=== PATIENT | female | born 1935 | race Two or more races ===

== ENCOUNTER 2017-09-22 07:27 | Inpatient (IN) | payer MEDICARE, OTHER ==
[~2017-09-22] VITALS: Ht 157.5 cm; Wt 77.0 kg
[2017-09-22] VITALS (8 sets, daily range): BP systolic 109–159; BP diastolic 53–109
[~2017-09-22 07:27] MED LIST: ASPI-41 PO; CYCL-394 PO; DILT120C62 PO; DOCU100C40 PO; DULO-31 PO; HYDR-569 PO; INSU100I25 SQ; LEVO750T46 PO
[2017-09-22] MEDS ORDERED: diltiazem 5mg/ml 5ml inj. IV ONE ×2 (07:40→08:15)
[2017-09-22] MEDS ORDERED: aspirin 81mg tab.chew PO ONE (07:40)
[2017-09-22 08:04] LABS: BASOPHILS % (AUTO) 0.3 % (0-1); EOSINOPHILS # (AUTO) 0.3 X10'3 (0-0.9); EOSINOPHILS % (AUTO) 2.5 % (0-6); HEMOGLOBIN 10.1 g/dl (12.0-16.0); LYMPHOCYTES # (AUTO) 0.9 X10'3 (1.1-4.8); LYMPHOCYTES % (AUTO) 7.6 % (21-51); MEAN CORPUSCULAR HEMOGLOBIN 23.2 PG (27.0-31.0); MEAN CORPUSCULAR HGB CONC 31.5 % (33.0-36.5); MEAN CORPUSCULAR VOLUME 73.5 FL (78-98); MEAN PLATELET VOLUME 10.6 FL (7.4-10.4); MONOCYTES # (AUTO) 0.5 X10'3 (0-0.9); MONOCYTES % (AUTO) 4.2 % (2-12); NEUTROPHILS # (AUTO) 10.3 X10'3 (1.8-7.7); NEUTROPHILS % (AUTO) 85.4 % (42-75); PLATELET COUNT 210 X10'3 (140-440); RED BLOOD COUNT 4.36 X10'6 (4.20-5.60); RED CELL DISTRIBUTION WIDTH 18.9 % (11.5-14.5)
[2017-09-22] MEDS ORDERED: diltiazem-NS 100mg/100ml 100 ML IV SCH (08:15)
[2017-09-22 08:17] LABS: ALANINE AMINOTRANSFERASE 17 U/L (12-78); ALBUMIN 3.4 G/DL (3.4-5.0); ALBUMIN/GLOBULIN RATIO 0.8 (1.1-1.5); ALKALINE PHOSPHATASE 95 IU/L (46-116); ANION GAP 7 (8-16); ASPARTATE AMINO TRANSFERASE 13 U/L (10-37); BILIRUBIN,TOTAL 1.1 MG/DL (0.1-1.0); BLOOD UREA NITROGEN 28 MG/DL (7-18); BUN/CREATININE RATIO 19.7 (6.6-38.0); CALCIUM 8.8 MG/DL (8.5-10.1); CHLORIDE 100 MMOL/L (99-107); CREATININE 1.42 MG/DL (0.40-0.90); GLUCOSE 232 MG/DL (70-104); SODIUM 136 MMOL/L (135-145); TOTAL CARBON DIOXIDE 29.4 MMOL/L (24-32); TOTAL PROTEIN 7.8 G/DL (6.4-8.2); eGFR 36 ML/MIN
[2017-09-22 08:22] LABS: MAGNESIUM 2.1 MG/DL (1.5-2.4)
[2017-09-22 08:24] LABS: ANISOCYTOSIS 2+; GIANT PLATELET FEW; LARGE PLATELETS FEW; PLATELET ESTIMATE NORMAL; POLYCHROMASIA 1+
[2017-09-22 08:28] LABS: PARTIAL THROMBOPLASTIN TIME 26 SECONDS (22-32); PROTHROMBIN TIME 10.7 SECONDS (9.0-12.0)
[2017-09-22] MEDS ORDERED: normal saline 1000ML IV soln IVB ONE (09:05)
[2017-09-22] MEDS ORDERED: heparin 10,000 units/1 ML INJ IV ONE (09:10)
[2017-09-22] MEDS ORDERED: dextrose ORAL solution 15 GM/59 ML bottle PO PRN ×2 (09:30)
[2017-09-22] MEDS ORDERED: morphine 4 MG/ML inj SYRINge IV PRN ×2 (09:30)
[2017-09-22] MEDS ORDERED: HYDROcodone/acetaminophen 10/325mg tab PO PRN (09:30)
[2017-09-22] MEDS ORDERED: HYDROcodone/acetaminophen 5mg/325mg tablet PO PRN (09:30)
[2017-09-22] MEDS ORDERED: MESSAGE TO PHARMACY PO ONE (09:30)
[2017-09-22] MEDS ORDERED: ondansetron/PF 4mg/2ml inj IV PRN (09:30)
[2017-09-22] MEDS ORDERED: dextrose 50%-water 50ml dispensing syringe IV PRN ×2 (09:30)
[2017-09-22] MEDS ORDERED: glucagon, human recombinant 1mg kit SUBCUT PRN (09:30)
[2017-09-22] MEDS ORDERED: magnesium hydroxide 30ml (MOM) UD suspension PO PRN (09:30)
[2017-09-22] MEDS ORDERED: mag hydrox/Alum hydrox/simeth 30ml oral suspension PO PRN (09:30)
[2017-09-22] MEDS ORDERED: acetaminophen 325mg tablet PO PRN (09:30)
[2017-09-22 09:49] LABS: HEMOGLOBIN A1C 8.3 % (4.5-6.2)
[2017-09-22] MEDS ORDERED: LANTUS SQ (09:56)
[2017-09-22] MEDS ORDERED: FURO-150 PO (09:56)
[2017-09-22] MEDS ORDERED: CARSR60C PO (09:57)
[2017-09-22] MEDS ORDERED: AMIO200T57 PO (09:57)
[2017-09-22] MEDS: diltiazem CD 120mg capsule (once-daily) PO SCH (13:14)
[2017-09-22] MEDS: insulin Lispro (HumaLOG) vial - multi-dose SQ SCH (17:04)
[2017-09-22] MEDS: heparin 10,000 units/1 ML INJ IV PRN (17:09)
[2017-09-22] MEDS ORDERED: diltiazem CD 120mg capsule (once-daily) PO ONE (17:55)
[2017-09-22] MEDS: docusate sod 100mg capsule PO SCH (19:10)
[2017-09-22] MEDS: insulin glargine (Lantus) pen - multi-dose SQ SCH (21:24)
[2017-09-23] MEDS: heparin 10,000 units/1 ML INJ IV PRN (00:32)
[2017-09-23 02:00] VITALS: BP 133/69
[2017-09-23 06:00] VITALS: BP 144/75
[2017-09-23] MEDS ORDERED: enoxaparin 40mg/0.4ml syringe SUBCUT SCH ×2 (08:00→10:25)
[2017-09-23 08:05] LABS: BASOPHILS % (AUTO) 0.4 % (0-1); EOSINOPHILS # (AUTO) 0.2 X10'3 (0-0.9); EOSINOPHILS % (AUTO) 2.6 % (0-6); HEMATOCRIT 29.7 % (35.0-45.0); HEMOGLOBIN 9.4 g/dl (12.0-16.0); LYMPHOCYTES # (AUTO) 0.8 X10'3 (1.1-4.8); LYMPHOCYTES % (AUTO) 9.4 % (21-51); MEAN CORPUSCULAR HEMOGLOBIN 23.3 PG (27.0-31.0); MEAN CORPUSCULAR HGB CONC 31.5 % (33.0-36.5); MEAN CORPUSCULAR VOLUME 73.9 FL (78-98); MEAN PLATELET VOLUME 10.6 FL (7.4-10.4); MONOCYTES # (AUTO) 0.4 X10'3 (0-0.9); MONOCYTES % (AUTO) 4.2 % (2-12); NEUTROPHILS # (AUTO) 7.5 X10'3 (1.8-7.7); NEUTROPHILS % (AUTO) 83.4 % (42-75); PLATELET COUNT 149 X10'3 (140-440); RED BLOOD COUNT 4.02 X10'6 (4.20-5.60); RED CELL DISTRIBUTION WIDTH 18.7 % (11.5-14.5)
[2017-09-23 08:23] LABS: ALBUMIN 3.2 G/DL (3.4-5.0); ANION GAP 9 (8-16); BLOOD UREA NITROGEN 27 MG/DL (7-18); BUN/CREATININE RATIO 20.6 (6.6-38.0); CALCIUM 8.5 MG/DL (8.5-10.1); CHLORIDE 100 MMOL/L (99-107); CHOLESTEROL 141 MG/DL (0-200); CREATININE 1.31 MG/DL (0.40-0.90); GLUCOSE 212 MG/DL (70-104); HDL CHOLESTEROL 35 MG/DL (35-60); LDL CHOLESTEROL 96 MG/DL (50-100); SODIUM 136 MMOL/L (135-145); TOTAL CARBON DIOXIDE 26.9 MMOL/L (24-32); TRIGLYCERIDES 102 MG/DL (20-135); eGFR 39 ML/MIN
[2017-09-23 08:45] LABS: TROPONIN I 0.11 NG/ML (0.0-0.05)
[2017-09-23] MEDS: docusate sod 100mg capsule PO SCH ×2 (08:46→19:12)
[2017-09-23] MEDS: diltiazem CD 120mg capsule (once-daily) PO SCH (08:47)
[2017-09-23 09:33] LABS: ANISOCYTOSIS 2+; PLATELET ESTIMATE NORMAL
[2017-09-23 09:34] LABS: GIANT PLATELET FEW; LARGE PLATELETS FEW; POLYCHROMASIA FEW
[2017-09-23] MEDS: insulin Lispro (HumaLOG) vial - multi-dose SQ SCH ×3 (09:43→19:11)
[2017-09-23 11:00] VITALS: BP 129/61
[2017-09-23] MEDS: furosemide 20 MG/2 ML vial IV SCH ×2 (11:16→19:13)
[2017-09-23] MEDS ORDERED: diltiazem CD 120mg capsule (once-daily) PO ONE (12:20)
[2017-09-23] MEDS ORDERED: diltiazem 5mg/ml 5ml inj. IV ONE (12:20)
[2017-09-23] MEDS: rivaroxaban 15mg tablet PO SCH (13:44)
[2017-09-23 15:00] VITALS: BP 141/59
[2017-09-23 19:00] VITALS: BP 121/50
[2017-09-23] MEDS: insulin glargine (Lantus) pen - multi-dose SQ SCH ×2 (20:00→21:27)
[2017-09-23 22:00] VITALS: BP 120/68
[2017-09-24 02:00] VITALS: BP 130/55
[2017-09-24 05:45] LABS: BASOPHILS % (AUTO) 0 % (0-1); EOSINOPHILS # (AUTO) 0.3 X10'3 (0-0.9); EOSINOPHILS % (AUTO) 2.8 % (0-6); HEMATOCRIT 31.2 % (35.0-45.0); HEMOGLOBIN 9.8 g/dl (12.0-16.0); LYMPHOCYTES # (AUTO) 0.8 X10'3 (1.1-4.8); LYMPHOCYTES % (AUTO) 7.9 % (21-51); MEAN CORPUSCULAR HEMOGLOBIN 23.3 PG (27.0-31.0); MEAN CORPUSCULAR HGB CONC 31.5 % (33.0-36.5); MEAN CORPUSCULAR VOLUME 73.9 FL (78-98); MEAN PLATELET VOLUME 10.1 FL (7.4-10.4); MONOCYTES # (AUTO) 0.5 X10'3 (0-0.9); NEUTROPHILS # (AUTO) 8.3 X10'3 (1.8-7.7); NEUTROPHILS % (AUTO) 84.3 % (42-75); PLATELET COUNT 196 X10'3 (140-440); RED BLOOD COUNT 4.22 X10'6 (4.20-5.60); RED CELL DISTRIBUTION WIDTH 19.3 % (11.5-14.5); WHITE BLOOD COUNT 9.9 X10'3 (4.5-11.0)
[2017-09-24 06:00] VITALS: BP 140/78
[2017-09-24 06:10] LABS: ALBUMIN 3.3 G/DL (3.4-5.0); ANION GAP 7 (8-16); BLOOD UREA NITROGEN 24 MG/DL (7-18); BUN/CREATININE RATIO 18.9 (6.6-38.0); CALCIUM 8.6 MG/DL (8.5-10.1); CHLORIDE 99 MMOL/L (99-107); CREATININE 1.27 MG/DL (0.40-0.90); GLUCOSE 150 MG/DL (70-104); POTASSIUM 3.6 MMOL/L (3.5-5.1); SODIUM 136 MMOL/L (135-145); TOTAL CARBON DIOXIDE 29.7 MMOL/L (24-32); eGFR 40 ML/MIN
[2017-09-24 07:10] LABS: ANISOCYTOSIS 2+; GIANT PLATELET FEW; LARGE PLATELETS FEW; PLATELET ESTIMATE NORMAL
[2017-09-24 07:11] LABS: MICROCYTOSIS 2+; POIKILOCYTOSIS FEW; POLYCHROMASIA 1+
[2017-09-24] MEDS ORDERED: duloxetine 30mg CAPSULE.DR PO SCH (08:00)
[2017-09-24] MEDS ORDERED: furosemide 20MG tablet PO SCH (08:00)
[2017-09-24] MEDS: furosemide 20 MG/2 ML vial IV SCH (08:00)
[2017-09-24] MEDS ORDERED: diltiazem SR 60mg capsule (twice daily) PO SCH (08:00)
[2017-09-24] MEDS ORDERED: amiodarone 200mg tablet PO SCH (08:00)
[2017-09-24] MEDS: docusate sod 100mg capsule PO SCH (08:14)
[2017-09-24] MEDS: rivaroxaban 15mg tablet PO SCH (08:15)
[2017-09-24] MEDS: insulin glargine (Lantus) pen - multi-dose SQ SCH (08:20)
[2017-09-24] MEDS ORDERED: FURO20TA4 PO (08:25)
[2017-09-24] MEDS: insulin Lispro (HumaLOG) vial - multi-dose SQ SCH (08:25)
== END 2017-09-24 11:00 | disposition home health service (06) | DRG 682 ==
LOC: ER 07:28 → ED HOLD 09:26 → PCU 3S 10:15 → CMPBEDREQ 19:31
PROVIDERS: ADMIT Internal Medicine; ATTEND Internal Medicine
DX: N17.9 Acute kidney failure, unspecified (principal); I50.23 Acute on chronic systolic (congestive) heart failure; J96.01 Acute respiratory failure with hypoxia; I48.0 Paroxysmal atrial fibrillation; I27.81 Cor pulmonale (chronic); F32.9 Major depressive disorder, single episode, unspecified; E11.22 Type 2 diabetes mellitus with diabetic chronic kidney disease; D50.9 Iron deficiency anemia, unspecified; N18.3 Chronic kidney disease, stage 3 (moderate); Z95.0 Presence of cardiac pacemaker; Z90.710 Acquired absence of both cervix and uterus; Z90.49 Acquired absence of other specified parts of digestive tract; Z88.5 Allergy status to narcotic agent; Z79.82 Long term (current) use of aspirin; Z79.899 Other long term (current) drug therapy; Z79.2 Long term (current) use of antibiotics; Z87.891 Personal history of nicotine dependence; Z86.73 Personal history of transient ischemic attack (TIA), and cerebral infarction without residual deficits; Z85.42 Personal history of malignant neoplasm of other parts of uterus; Z83.3 Family history of diabetes mellitus; Z82.49 Family history of ischemic heart disease and other diseases of the circulatory system
CPT/HCPCS: 36415; 71045; 80048; 80053; 80061; 82948; 83036; 83735; 83880; 84484; 85025; 85610; 85730; 93005; 93306; J1644; J1650; J1815; J1940; J2405; J3490; J7030

== ENCOUNTER 2017-10-02 16:03 | Emergency (ER) | payer MEDICARE, OTHER ==
[~2017-10-02] VITALS: Ht 154.9 cm; Wt 80.0 kg
[~2017-10-02 16:03] MED LIST changes: +AMIO200T57 PO; -ASPI-41 PO; +CARSR60C PO; -CYCL-394 PO; -DILT120C62 PO; -DOCU100C40 PO; +FURO20TA4 PO; -HYDR-569 PO; -INSU100I25 SQ; +LANTUS SQ; -LEVO750T46 PO
[2017-10-02 16:33] LABS: BASOPHILS % (AUTO) 0.1 % (0-1); EOSINOPHILS # (AUTO) 0.1 X10'3 (0-0.9); EOSINOPHILS % (AUTO) 0.9 % (0-6); HEMATOCRIT 28.3 % (35.0-45.0); LYMPHOCYTES # (AUTO) 0.7 X10'3 (1.1-4.8); LYMPHOCYTES % (AUTO) 6.3 % (21-51); MEAN CORPUSCULAR HEMOGLOBIN 23.3 PG (27.0-31.0); MEAN CORPUSCULAR HGB CONC 31.8 % (33.0-36.5); MEAN CORPUSCULAR VOLUME 73.1 FL (78-98); MEAN PLATELET VOLUME 8.8 FL (7.4-10.4); MONOCYTES # (AUTO) 0.5 X10'3 (0-0.9); MONOCYTES % (AUTO) 4.1 % (2-12); NEUTROPHILS # (AUTO) 9.6 X10'3 (1.8-7.7); NEUTROPHILS % (AUTO) 88.6 % (42-75); PLATELET COUNT 201 X10'3 (140-440); RED BLOOD COUNT 3.88 X10'6 (4.20-5.60); RED CELL DISTRIBUTION WIDTH 19.7 % (11.5-14.5); WHITE BLOOD COUNT 10.9 X10'3 (4.5-11.0)
[2017-10-02 16:43] LABS: PARTIAL THROMBOPLASTIN TIME 26 SECONDS (22-32); PROTHROMBIN TIME 10.5 SECONDS (9.0-12.0)
[2017-10-02] MEDS ORDERED: furosemide 10 MG/1 ML 10ml inj IV ONE (16:45)
[2017-10-02 16:47] LABS: ALANINE AMINOTRANSFERASE 24 U/L (12-78); ALBUMIN 3.4 G/DL (3.4-5.0); ALBUMIN/GLOBULIN RATIO 0.9 (1.1-1.5); ALKALINE PHOSPHATASE 86 IU/L (46-116); ANION GAP 8 (8-16); ASPARTATE AMINO TRANSFERASE 15 U/L (10-37); BILIRUBIN,TOTAL 0.7 MG/DL (0.1-1.0); BLOOD UREA NITROGEN 28 MG/DL (7-18); BUN/CREATININE RATIO 19.9 (6.6-38.0); CALCIUM 8.6 MG/DL (8.5-10.1); CHLORIDE 101 MMOL/L (99-107); CREATININE 1.41 MG/DL (0.40-0.90); GLUCOSE 256 MG/DL (70-104); SODIUM 139 MMOL/L (135-145); TOTAL CARBON DIOXIDE 30.4 MMOL/L (24-32); TOTAL PROTEIN 7.2 G/DL (6.4-8.2); eGFR 36 ML/MIN
[2017-10-02 16:55] LABS: ANISOCYTOSIS 2+; HYPOCHROMASIA 1+; MICROCYTOSIS 2+; PLATELET ESTIMATE NORMAL; POLYCHROMASIA 1+
[2017-10-02] MEDS ORDERED: FURO40TA4 PO (18:26)
[2017-10-02 18:56] VITALS: BP 130/72
== END 2017-10-02 19:09 | disposition home or self-care (01) ==
LOC: ER 16:04
DX: I50.9 Heart failure, unspecified (principal); I48.91 Unspecified atrial fibrillation; E11.9 Type 2 diabetes mellitus without complications; Z95.0 Presence of cardiac pacemaker; Z98.890 Other specified postprocedural states; Z88.5 Allergy status to narcotic agent; Z79.899 Other long term (current) drug therapy; Z79.4 Long term (current) use of insulin
CPT/HCPCS: 36415; 71045; 80053; 83880; 84484; 85025; 85610; 85730; 93005; 96374; 99285; J1940; J7030

== ENCOUNTER 2017-10-04 19:27 | Inpatient (IN) | payer MEDICARE, OTHER ==
[~2017-10-04] VITALS: Ht 160 cm; Wt 79.9 kg
[~2017-10-04 19:27] MED LIST changes: +AMIO200T40 PO; -AMIO200T57 PO; +FURO40TA4 PO
[2017-10-04 20:06] LABS: BASOPHILS % (AUTO) 0.1 % (0-1); EOSINOPHILS # (AUTO) 0.1 X10'3 (0-0.9); HEMATOCRIT 27.3 % (35.0-45.0); HEMOGLOBIN 8.6 g/dl (12.0-16.0); LYMPHOCYTES # (AUTO) 0.6 X10'3 (1.1-4.8); LYMPHOCYTES % (AUTO) 5.8 % (21-51); MEAN CORPUSCULAR HEMOGLOBIN 23.2 PG (27.0-31.0); MEAN CORPUSCULAR HGB CONC 31.6 % (33.0-36.5); MEAN CORPUSCULAR VOLUME 73.4 FL (78-98); MEAN PLATELET VOLUME 8.8 FL (7.4-10.4); MONOCYTES # (AUTO) 0.5 X10'3 (0-0.9); MONOCYTES % (AUTO) 4.2 % (2-12); NEUTROPHILS # (AUTO) 9.9 X10'3 (1.8-7.7); NEUTROPHILS % (AUTO) 88.9 % (42-75); PLATELET COUNT 208 X10'3 (140-440); RED BLOOD COUNT 3.72 X10'6 (4.20-5.60); RED CELL DISTRIBUTION WIDTH 19.9 % (11.5-14.5); WHITE BLOOD COUNT 11.2 X10'3 (4.5-11.0)
[2017-10-04 20:25] LABS: ALANINE AMINOTRANSFERASE 23 U/L (12-78); ALBUMIN 3.6 G/DL (3.4-5.0); ALBUMIN/GLOBULIN RATIO 0.8 (1.1-1.5); ALKALINE PHOSPHATASE 96 IU/L (46-116); ANION GAP 9 (8-16); ASPARTATE AMINO TRANSFERASE 15 U/L (10-37); BILIRUBIN,TOTAL 0.8 MG/DL (0.1-1.0); BLOOD UREA NITROGEN 30 MG/DL (7-18); BUN/CREATININE RATIO 21.1 (6.6-38.0); CHLORIDE 99 MMOL/L (99-107); CREATININE 1.42 MG/DL (0.40-0.90); GLUCOSE 316 MG/DL (70-104); SODIUM 139 MMOL/L (135-145); TOTAL CARBON DIOXIDE 31.2 MMOL/L (24-32); TOTAL PROTEIN 8.3 G/DL (6.4-8.2); eGFR 36 ML/MIN
[2017-10-04 20:26] LABS: PARTIAL THROMBOPLASTIN TIME 26 SECONDS (22-32); PROTHROMBIN TIME 10.2 SECONDS (9.0-12.0)
[2017-10-04] MEDS ORDERED: albuterol 2.5 MG/3 ML nebule NEB ONE (20:35)
[2017-10-04] MEDS ORDERED: insulin glargine (Lantus) pen - multi-dose SQ ONE (20:40)
[2017-10-04] MEDS ORDERED: furosemide 10 MG/1 ML 10ml inj IV ONE (20:40)
[2017-10-04] MEDS ORDERED: MESSAGE TO PHARMACY PO ONE (21:55)
[2017-10-04] MEDS ORDERED: glucagon, human recombinant 1mg kit SUBCUT PRN (21:55)
[2017-10-04] MEDS ORDERED: mag hydrox/Alum hydrox/simeth 30ml oral suspension PO PRN (21:55)
[2017-10-04] MEDS ORDERED: ondansetron/PF 4mg/2ml inj IV PRN (21:55)
[2017-10-04] MEDS ORDERED: acetaminophen 325mg tablet PO PRN ×2 (21:55)
[2017-10-04] MEDS ORDERED: potassium Cl 20 mEq SR tablet PO PRN (21:55)
[2017-10-04] MEDS ORDERED: HYDROcodone/acetaminophen 5mg/325mg tablet PO PRN (21:55)
[2017-10-04] MEDS ORDERED: albuterol 2.5 MG/3 ML nebule NEB PRN (21:55)
[2017-10-04] MEDS ORDERED: potassium Cl 40MEQ/NS 500ml 500 ML IV PRN ×2 (21:55)
[2017-10-04] MEDS ORDERED: dextrose 50%-water 50ml dispensing syringe IV PRN ×2 (21:55)
[2017-10-04] MEDS ORDERED: dextrose ORAL solution 15 GM/59 ML bottle PO PRN ×2 (21:55)
[2017-10-04] MEDS ORDERED: DILT240C96 PO (22:17)
[2017-10-04 23:06] LABS: HEMOGLOBIN A1C 8.8 % (4.5-6.2)
[2017-10-05] VITALS: BP 110/53
[2017-10-05] MEDS: furosemide 40mg/4ml inj IV SCH ×3 (00:05→16:54)
[2017-10-05 05:01] LABS: BASOPHILS % (AUTO) 0.1 % (0-1); EOSINOPHILS # (AUTO) 0.2 X10'3 (0-0.9); EOSINOPHILS % (AUTO) 2.2 % (0-6); HEMATOCRIT 24.5 % (35.0-45.0); HEMOGLOBIN 7.7 g/dl (12.0-16.0); LYMPHOCYTES # (AUTO) 0.5 X10'3 (1.1-4.8); LYMPHOCYTES % (AUTO) 7.1 % (21-51); MEAN CORPUSCULAR HEMOGLOBIN 23.1 PG (27.0-31.0); MEAN CORPUSCULAR HGB CONC 31.4 % (33.0-36.5); MEAN CORPUSCULAR VOLUME 73.8 FL (78-98); MEAN PLATELET VOLUME 8.7 FL (7.4-10.4); MONOCYTES # (AUTO) 0.4 X10'3 (0-0.9); MONOCYTES % (AUTO) 5.6 % (2-12); NEUTROPHILS # (AUTO) 6.4 X10'3 (1.8-7.7); PLATELET COUNT 155 X10'3 (140-440); RED BLOOD COUNT 3.32 X10'6 (4.20-5.60); RED CELL DISTRIBUTION WIDTH 19.6 % (11.5-14.5); WHITE BLOOD COUNT 7.5 X10'3 (4.5-11.0)
[2017-10-05 05:11] LABS: ALBUMIN 3.3 G/DL (3.4-5.0); ANION GAP 4 (8-16); BLOOD UREA NITROGEN 31 MG/DL (7-18); BUN/CREATININE RATIO 22.1 (6.6-38.0); CALCIUM 8.9 MG/DL (8.5-10.1); CHLORIDE 102 MMOL/L (99-107); GLUCOSE 183 MG/DL (70-104); POTASSIUM 3.5 MMOL/L (3.5-5.1); SODIUM 141 MMOL/L (135-145); TOTAL CARBON DIOXIDE 34.8 MMOL/L (24-32); eGFR 36 ML/MIN
[2017-10-05 06:43] LABS: ANISOCYTOSIS 2+; MICROCYTOSIS 1+; PLATELET ESTIMATE NORMAL
[2017-10-05 06:44] LABS: POLYCHROMASIA 1+
[2017-10-05 07:14] VITALS: BP 127/66
[2017-10-05] MEDS: K and/or MAG REPLACEMENT MC SCH (08:00)
[2017-10-05] MEDS ORDERED: non-formulary drug (Diltiazem HCl (Diltiazem 24Hr Cd) 1 CAP) PO SCH (08:00)
[2017-10-05] MEDS ORDERED: apixaban 5mg tablet PO SCH (08:00)
[2017-10-05] MEDS ORDERED: diltiazem CD 120mg capsule (once-daily) PO SCH (08:00)
[2017-10-05] MEDS: insulin glargine (Lantus) pen - multi-dose SQ SCH ×2 (08:00→20:00)
[2017-10-05] MEDS: diltiazem CD 120mg capsule (once-daily) PO SCH (09:35)
[2017-10-05] MEDS: amiodarone 200mg tablet PO SCH (09:36)
[2017-10-05] MEDS: duloxetine 30mg CAPSULE.DR PO SCH (09:36)
[2017-10-05] MEDS: magnesium hydroxide 30ml (MOM) UD suspension PO PRN (09:53)
[2017-10-05 11:27] VITALS: BP 143/50
[2017-10-05] MEDS: pantoprazole 40 MG vial IV SCH ×2 (14:24→20:01)
[2017-10-05] MEDS: levoTHYROXINE 25mcg tablet PO SCH (14:27)
[2017-10-05 19:00] VITALS: BP 139/66
[2017-10-05] MEDS: insulin Lispro (HumaLOG) vial - multi-dose SQ SCH (19:47)
[2017-10-05] MEDS ORDERED: insulin glargine (Lantus) pen - multi-dose SQ SCH (21:00)
[2017-10-06] VITALS: BP 125/51
[2017-10-06] MEDS: magnesium hydroxide 30ml (MOM) UD suspension PO PRN (00:06)
[2017-10-06] MEDS: furosemide 40mg/4ml inj IV SCH ×3 (00:07→17:16)
[2017-10-06 05:32] LABS: BASOPHILS % (AUTO) 0.1 % (0-1); EOSINOPHILS # (AUTO) 0.3 X10'3 (0-0.9); EOSINOPHILS % (AUTO) 3.5 % (0-6); HEMATOCRIT 25.5 % (35.0-45.0); LYMPHOCYTES # (AUTO) 0.9 X10'3 (1.1-4.8); LYMPHOCYTES % (AUTO) 9.6 % (21-51); MEAN CORPUSCULAR HEMOGLOBIN 23.3 PG (27.0-31.0); MEAN CORPUSCULAR HGB CONC 31.3 % (33.0-36.5); MEAN CORPUSCULAR VOLUME 74.4 FL (78-98); MEAN PLATELET VOLUME 8.8 FL (7.4-10.4); MONOCYTES # (AUTO) 0.5 X10'3 (0-0.9); MONOCYTES % (AUTO) 5.2 % (2-12); NEUTROPHILS # (AUTO) 7.6 X10'3 (1.8-7.7); NEUTROPHILS % (AUTO) 81.6 % (42-75); PLATELET COUNT 186 X10'3 (140-440); RED BLOOD COUNT 3.42 X10'6 (4.20-5.60); RED CELL DISTRIBUTION WIDTH 20.1 % (11.5-14.5); WHITE BLOOD COUNT 9.3 X10'3 (4.5-11.0)
[2017-10-06 05:58] LABS: ALBUMIN 3.4 G/DL (3.4-5.0); ANION GAP 5 (8-16); BLOOD UREA NITROGEN 32 MG/DL (7-18); BUN/CREATININE RATIO 22.2 (6.6-38.0); CHLORIDE 100 MMOL/L (99-107); CREATININE 1.44 MG/DL (0.40-0.90); GLUCOSE 96 MG/DL (70-104); POTASSIUM 3.2 MMOL/L (3.5-5.1); SODIUM 141 MMOL/L (135-145); TOTAL CARBON DIOXIDE 36.3 MMOL/L (24-32); eGFR 35 ML/MIN
[2017-10-06 07:00] VITALS: BP 127/69
[2017-10-06] MEDS: amiodarone 200mg tablet PO SCH ×2 (07:56→20:10)
[2017-10-06] MEDS: levoTHYROXINE 25mcg tablet PO SCH (07:56)
[2017-10-06] MEDS: duloxetine 30mg CAPSULE.DR PO SCH (07:56)
[2017-10-06] MEDS: diltiazem CD 120mg capsule (once-daily) PO SCH (07:56)
[2017-10-06] MEDS: pantoprazole 40 MG vial IV SCH ×2 (07:57→20:10)
[2017-10-06] MEDS: potassium Cl 20 mEq SR tablet PO PRN ×3 (07:57→17:16)
[2017-10-06] MEDS: K and/or MAG REPLACEMENT MC SCH (08:00)
[2017-10-06 11:00] VITALS: BP 127/68
[2017-10-06 11:23] LABS: ANISOCYTOSIS 2+; HYPOCHROMASIA 1+; MICROCYTOSIS 1+; PLATELET ESTIMATE NORMAL; POIKILOCYTOSIS 1+; POLYCHROMASIA 1+
[2017-10-06 12:36] LABS: OCCULT BLOOD STOOL POSITIVE (Neg)
[2017-10-06] MEDS: insulin Lispro (HumaLOG) vial - multi-dose SQ SCH ×2 (12:46→22:22)
[2017-10-06] MEDS ORDERED: PEG 3350/Na sulf,bicarb,Cl/KCl oral sol 4 liter bottle PO ONE (16:55)
[2017-10-06 19:30] VITALS: BP 127/89
[2017-10-07] VITALS (16 sets, daily range): BP systolic 117–153; BP diastolic 42–84
[2017-10-07] MEDS: furosemide 40mg/4ml inj IV SCH ×4 (00:29→23:46)
[2017-10-07 06:52] LABS: BASOPHILS % (AUTO) 0.3 % (0-1); EOSINOPHILS # (AUTO) 0.2 X10'3 (0-0.9); EOSINOPHILS % (AUTO) 2.8 % (0-6); HEMATOCRIT 26.3 % (35.0-45.0); HEMOGLOBIN 8.1 g/dl (12.0-16.0); LYMPHOCYTES # (AUTO) 0.5 X10'3 (1.1-4.8); LYMPHOCYTES % (AUTO) 5.4 % (21-51); MEAN CORPUSCULAR HEMOGLOBIN 22.9 PG (27.0-31.0); MEAN CORPUSCULAR HGB CONC 30.8 % (33.0-36.5); MEAN CORPUSCULAR VOLUME 74.3 FL (78-98); MEAN PLATELET VOLUME 9.4 FL (7.4-10.4); MONOCYTES # (AUTO) 0.5 X10'3 (0-0.9); MONOCYTES % (AUTO) 5.2 % (2-12); NEUTROPHILS # (AUTO) 7.7 X10'3 (1.8-7.7); NEUTROPHILS % (AUTO) 86.3 % (42-75); PLATELET COUNT 188 X10'3 (140-440); RED BLOOD COUNT 3.54 X10'6 (4.20-5.60); RED CELL DISTRIBUTION WIDTH 19.6 % (11.5-14.5); WHITE BLOOD COUNT 8.9 X10'3 (4.5-11.0)
[2017-10-07 07:05] LABS: ALBUMIN 3.5 G/DL (3.4-5.0); ANION GAP 9 (8-16); BLOOD UREA NITROGEN 26 MG/DL (7-18); BUN/CREATININE RATIO 16.5 (6.6-38.0); CALCIUM 8.6 MG/DL (8.5-10.1); CHLORIDE 99 MMOL/L (99-107); CREATININE 1.58 MG/DL (0.40-0.90); GLUCOSE 268 MG/DL (70-104); POTASSIUM 3.8 MMOL/L (3.5-5.1); SODIUM 141 MMOL/L (135-145); TOTAL CARBON DIOXIDE 33.2 MMOL/L (24-32); eGFR 31 ML/MIN
[2017-10-07 07:18] LABS: ANISOCYTOSIS 2+; PLATELET ESTIMATE NORMAL
[2017-10-07 07:21] LABS: HYPOCHROMASIA 1+; POLYCHROMASIA FEW
[2017-10-07] MEDS: K and/or MAG REPLACEMENT MC SCH (08:00)
[2017-10-07] MEDS: duloxetine 30mg CAPSULE.DR PO SCH (09:07)
[2017-10-07] MEDS: pantoprazole 40 MG vial IV SCH ×2 (09:07→20:22)
[2017-10-07] MEDS: amiodarone 200mg tablet PO SCH ×2 (09:07→20:22)
[2017-10-07] MEDS: diltiazem CD 120mg capsule (once-daily) PO SCH (09:07)
[2017-10-07] MEDS: levoTHYROXINE 25mcg tablet PO SCH (09:07)
[2017-10-07] MEDS ORDERED: magnesium citrate 296ml oral solution PO ONE (12:45)
[2017-10-07] MEDS ORDERED: MIDAZolam 5mg/5ml vial ONE (16:27)
[2017-10-07] MEDS ORDERED: fentaNYL/PF 50MCG/1 ML 2ML syringe ONE (16:27)
[2017-10-07] MEDS ORDERED: LIDOcaine Viscous 15ml cup ONE (16:28)
[2017-10-07 21:18] LABS: BASOPHILS % (AUTO) 0.1 % (0-1); EOSINOPHILS # (AUTO) 0.1 X10'3 (0-0.9); EOSINOPHILS % (AUTO) 0.4 % (0-6); HEMATOCRIT 25.9 % (35.0-45.0); HEMOGLOBIN 8.1 g/dl (12.0-16.0); LYMPHOCYTES # (AUTO) 0.4 X10'3 (1.1-4.8); MEAN CORPUSCULAR HEMOGLOBIN 23.4 PG (27.0-31.0); MEAN CORPUSCULAR HGB CONC 31.2 % (33.0-36.5); MEAN PLATELET VOLUME 9.2 FL (7.4-10.4); MONOCYTES # (AUTO) 0.6 X10'3 (0-0.9); MONOCYTES % (AUTO) 4.5 % (2-12); NEUTROPHILS # (AUTO) 11.8 X10'3 (1.8-7.7); PLATELET COUNT 171 X10'3 (140-440); RED BLOOD COUNT 3.45 X10'6 (4.20-5.60); RED CELL DISTRIBUTION WIDTH 18.7 % (11.5-14.5); WHITE BLOOD COUNT 12.9 X10'3 (4.5-11.0)
[2017-10-07 21:59] LABS: ANISOCYTOSIS 2+; HYPOCHROMASIA 1+; MICROCYTOSIS 1+; PLATELET ESTIMATE NORMAL
[2017-10-07] MEDS: insulin Lispro (HumaLOG) vial - multi-dose SQ SCH (21:59)
[2017-10-08] VITALS: BP 128/60
[2017-10-08 05:53] LABS: BASOPHILS % (AUTO) 0 % (0-1); EOSINOPHILS # (AUTO) 0.2 X10'3 (0-0.9); EOSINOPHILS % (AUTO) 1.9 % (0-6); HEMATOCRIT 24.7 % (35.0-45.0); HEMOGLOBIN 7.7 g/dl (12.0-16.0); LYMPHOCYTES # (AUTO) 0.5 X10'3 (1.1-4.8); MEAN CORPUSCULAR HEMOGLOBIN 23.2 PG (27.0-31.0); MEAN CORPUSCULAR VOLUME 74.9 FL (78-98); MONOCYTES # (AUTO) 0.4 X10'3 (0-0.9); NEUTROPHILS # (AUTO) 8.8 X10'3 (1.8-7.7); NEUTROPHILS % (AUTO) 89.1 % (42-75); PLATELET COUNT 153 X10'3 (140-440); RED CELL DISTRIBUTION WIDTH 19.8 % (11.5-14.5); WHITE BLOOD COUNT 9.8 X10'3 (4.5-11.0)
[2017-10-08 06:14] LABS: ALBUMIN 3.4 G/DL (3.4-5.0); ANION GAP 5 (8-16); BLOOD UREA NITROGEN 25 MG/DL (7-18); CALCIUM 7.9 MG/DL (8.5-10.1); CHLORIDE 98 MMOL/L (99-107); CREATININE 1.47 MG/DL (0.40-0.90); GLUCOSE 285 MG/DL (70-104); POTASSIUM 3.5 MMOL/L (3.5-5.1); SODIUM 139 MMOL/L (135-145); TOTAL CARBON DIOXIDE 35.7 MMOL/L (24-32); eGFR 34 ML/MIN
[2017-10-08 07:00] VITALS: BP 113/60
[2017-10-08] MEDS: amiodarone 200mg tablet PO SCH ×2 (07:47→19:12)
[2017-10-08] MEDS: levoTHYROXINE 25mcg tablet PO SCH (07:47)
[2017-10-08] MEDS: duloxetine 30mg CAPSULE.DR PO SCH (07:48)
[2017-10-08] MEDS: furosemide 40mg/4ml inj IV SCH ×3 (07:49→23:33)
[2017-10-08] MEDS: diltiazem CD 120mg capsule (once-daily) PO SCH (07:49)
[2017-10-08] MEDS: pantoprazole 40 MG vial IV SCH ×2 (07:49→19:10)
[2017-10-08] MEDS: K and/or MAG REPLACEMENT MC SCH (07:53)
[2017-10-08 08:37] LABS: ANISOCYTOSIS 2+; PLATELET ESTIMATE NORMAL; POLYCHROMASIA FEW
[2017-10-08 08:38] LABS: HYPOCHROMASIA 1+; MICROCYTOSIS FEW
[2017-10-08] MEDS: insulin Lispro (HumaLOG) vial - multi-dose SQ SCH ×3 (09:38→19:12)
[2017-10-08 10:34] LABS: BASOPHILS % (AUTO) 0.2 % (0-1); EOSINOPHILS % (AUTO) 0.5 % (0-6); HEMATOCRIT 23.5 % (35.0-45.0); HEMOGLOBIN 7.4 g/dl (12.0-16.0); LYMPHOCYTES # (AUTO) 0.3 X10'3 (1.1-4.8); LYMPHOCYTES % (AUTO) 3.5 % (21-51); MEAN CORPUSCULAR HEMOGLOBIN 23.5 PG (27.0-31.0); MEAN CORPUSCULAR HGB CONC 31.5 % (33.0-36.5); MEAN CORPUSCULAR VOLUME 74.7 FL (78-98); MEAN PLATELET VOLUME 9.1 FL (7.4-10.4); MONOCYTES # (AUTO) 0.3 X10'3 (0-0.9); MONOCYTES % (AUTO) 3.7 % (2-12); NEUTROPHILS # (AUTO) 8.4 X10'3 (1.8-7.7); NEUTROPHILS % (AUTO) 92.1 % (42-75); PLATELET COUNT 159 X10'3 (140-440); RED BLOOD COUNT 3.15 X10'6 (4.20-5.60); RED CELL DISTRIBUTION WIDTH 19.6 % (11.5-14.5); WHITE BLOOD COUNT 9.1 X10'3 (4.5-11.0)
[2017-10-08 10:45] LABS: ALBUMIN 3.2 G/DL (3.4-5.0); ANION GAP 6 (8-16); BLOOD UREA NITROGEN 25 MG/DL (7-18); BUN/CREATININE RATIO 14.5 (6.6-38.0); CALCIUM 7.7 MG/DL (8.5-10.1); CHLORIDE 97 MMOL/L (99-107); CREATININE 1.73 MG/DL (0.40-0.90); GLUCOSE 395 MG/DL (70-104); POTASSIUM 3.6 MMOL/L (3.5-5.1); SODIUM 138 MMOL/L (135-145); TOTAL CARBON DIOXIDE 34.8 MMOL/L (24-32); eGFR 28 ML/MIN
[2017-10-08 11:29] VITALS: BP 140/47
[2017-10-08] MEDS: nystatin 15 GM powder TP SCH ×2 (13:54→20:31)
[2017-10-08 18:00] VITALS: BP 125/38
[2017-10-08 20:22] LABS: BASOPHILS % (AUTO) 0.1 % (0-1); EOSINOPHILS # (AUTO) 0.3 X10'3 (0-0.9); EOSINOPHILS % (AUTO) 2.3 % (0-6); HEMOGLOBIN 7.6 g/dl (12.0-16.0); LYMPHOCYTES # (AUTO) 0.8 X10'3 (1.1-4.8); LYMPHOCYTES % (AUTO) 7.4 % (21-51); MEAN CORPUSCULAR HEMOGLOBIN 23.6 PG (27.0-31.0); MEAN CORPUSCULAR HGB CONC 31.8 % (33.0-36.5); MEAN CORPUSCULAR VOLUME 74.2 FL (78-98); MEAN PLATELET VOLUME 9.5 FL (7.4-10.4); MONOCYTES # (AUTO) 0.6 X10'3 (0-0.9); NEUTROPHILS # (AUTO) 9.7 X10'3 (1.8-7.7); NEUTROPHILS % (AUTO) 85.2 % (42-75); PLATELET COUNT 178 X10'3 (140-440); RED BLOOD COUNT 3.24 X10'6 (4.20-5.60); RED CELL DISTRIBUTION WIDTH 20.3 % (11.5-14.5); WHITE BLOOD COUNT 11.4 X10'3 (4.5-11.0)
[2017-10-08 22:32] LABS: PLATELET ESTIMATE NORMAL
[2017-10-08 22:34] LABS: POLYCHROMASIA FEW
[2017-10-08 22:36] LABS: ANISOCYTOSIS 2+; HYPOCHROMASIA 1+
[2017-10-09] VITALS: BP 133/53
[2017-10-09] MEDS ORDERED: furosemide 10 MG/1 ML 10ml inj IV ONE (04:00)
[2017-10-09 05:09] LABS: BASOPHILS % (AUTO) 0.1 % (0-1); EOSINOPHILS # (AUTO) 0.4 X10'3 (0-0.9); EOSINOPHILS % (AUTO) 3.6 % (0-6); HEMATOCRIT 24.2 % (35.0-45.0); HEMOGLOBIN 7.6 g/dl (12.0-16.0); LYMPHOCYTES # (AUTO) 0.7 X10'3 (1.1-4.8); LYMPHOCYTES % (AUTO) 6.4 % (21-51); MEAN CORPUSCULAR HEMOGLOBIN 23.4 PG (27.0-31.0); MEAN CORPUSCULAR HGB CONC 31.4 % (33.0-36.5); MEAN CORPUSCULAR VOLUME 74.8 FL (78-98); MEAN PLATELET VOLUME 9.6 FL (7.4-10.4); MONOCYTES # (AUTO) 0.5 X10'3 (0-0.9); MONOCYTES % (AUTO) 4.7 % (2-12); NEUTROPHILS # (AUTO) 9.2 X10'3 (1.8-7.7); NEUTROPHILS % (AUTO) 85.2 % (42-75); PLATELET COUNT 157 X10'3 (140-440); RED BLOOD COUNT 3.23 X10'6 (4.20-5.60); RED CELL DISTRIBUTION WIDTH 19.8 % (11.5-14.5); WHITE BLOOD COUNT 10.8 X10'3 (4.5-11.0)
[2017-10-09 05:40] LABS: ALBUMIN 3.3 G/DL (3.4-5.0); ANION GAP 8 (8-16); BLOOD UREA NITROGEN 31 MG/DL (7-18); BUN/CREATININE RATIO 16.3 (6.6-38.0); CALCIUM 8.3 MG/DL (8.5-10.1); CHLORIDE 96 MMOL/L (99-107); GLUCOSE 237 MG/DL (70-104); POTASSIUM 3.6 MMOL/L (3.5-5.1); SODIUM 137 MMOL/L (135-145); eGFR 25 ML/MIN
[2017-10-09 06:00] VITALS: BP 156/51
[2017-10-09] MEDS: amiodarone 200mg tablet PO SCH ×2 (08:25→19:53)
[2017-10-09] MEDS: levoTHYROXINE 25mcg tablet PO SCH (08:25)
[2017-10-09] MEDS: diltiazem CD 120mg capsule (once-daily) PO SCH (08:26)
[2017-10-09] MEDS: duloxetine 30mg CAPSULE.DR PO SCH (08:26)
[2017-10-09] MEDS: nystatin 15 GM powder TP SCH ×3 (08:33→19:54)
[2017-10-09] MEDS: pantoprazole 40 MG vial IV SCH (08:33)
[2017-10-09] MEDS: furosemide 40mg/4ml inj IV SCH (08:33)
[2017-10-09] MEDS: K and/or MAG REPLACEMENT MC SCH (08:41)
[2017-10-09] MEDS: insulin Lispro (HumaLOG) vial - multi-dose SQ SCH ×3 (08:43→20:04)
[2017-10-09 11:00] VITALS: BP 154/50
[2017-10-09 11:05] LABS: ABG BASE EXCESS 8.6 mmol/L (-2.0-3.0); ABG HCO3 33.8 mmol/L (22.0-26.0); ABG PCO2 (T) 50.5 mmHg (32.0-45.0); ABG PH (T) 7.443 (7.350-7.450); ABG PO2 (T) 64.9 mmHg (83-108); ALLEN'S TEST Positive; FCOHb 0.9 % (0.5-1.5); FMetHb 0.3 % (0.3-1.12); FO2Hb 91.9 % (94-100); TOTAL HEMOGLOBIN 8.5 G/dl (12.0-16.0)
[2017-10-09 11:50] LABS: BASOPHILS % (AUTO) 0.1 % (0-1); EOSINOPHILS # (AUTO) 0.1 X10'3 (0-0.9); EOSINOPHILS % (AUTO) 1.1 % (0-6); HEMATOCRIT 23.8 % (35.0-45.0); HEMOGLOBIN 7.5 g/dl (12.0-16.0); LYMPHOCYTES # (AUTO) 0.6 X10'3 (1.1-4.8); LYMPHOCYTES % (AUTO) 6.1 % (21-51); MEAN CORPUSCULAR HEMOGLOBIN 23.6 PG (27.0-31.0); MEAN CORPUSCULAR HGB CONC 31.5 % (33.0-36.5); MEAN CORPUSCULAR VOLUME 75.1 FL (78-98); MEAN PLATELET VOLUME 9.5 FL (7.4-10.4); MONOCYTES # (AUTO) 0.4 X10'3 (0-0.9); MONOCYTES % (AUTO) 4.4 % (2-12); NEUTROPHILS # (AUTO) 8.3 X10'3 (1.8-7.7); NEUTROPHILS % (AUTO) 88.3 % (42-75); PLATELET COUNT 140 X10'3 (140-440); RED BLOOD COUNT 3.17 X10'6 (4.20-5.60); RED CELL DISTRIBUTION WIDTH 19.5 % (11.5-14.5); WHITE BLOOD COUNT 9.4 X10'3 (4.5-11.0)
[2017-10-09 12:23] LABS: ANISOCYTOSIS 2+; MICROCYTOSIS 1+; PLATELET ESTIMATE DECREASED; POLYCHROMASIA 1+
[2017-10-09] MEDS ORDERED: vancomycin/NS 1 GM ADD-VANTAGE 250 ML IV SCH (13:40)
[2017-10-09] MEDS: methylPREDNISolone sod succ/PF 40mg inj. IV SCH ×2 (14:24→19:53)
[2017-10-09] MEDS: vancomycin/NS 1 GM ADD-VANTAGE 250 ML IV SCH (14:24)
[2017-10-09 15:00] VITALS: BP 149/52
[2017-10-09] MEDS ORDERED: cefepime 2gm inj IV SCH (16:00)
[2017-10-09] MEDS: cefepime 2g/NS 100ml ADVANTAGE 100 ML IV SCH ×2 (16:02→23:17)
[2017-10-09] MEDS: HYDROcodone/acetaminophen 10/325mg tab PO PRN (17:17)
[2017-10-09 18:32] LABS: BASOPHILS % (AUTO) 0 % (0-1); EOSINOPHILS # (AUTO) 0.2 X10'3 (0-0.9); EOSINOPHILS % (AUTO) 1.9 % (0-6); HEMATOCRIT 26.9 % (35.0-45.0); HEMOGLOBIN 8.4 g/dl (12.0-16.0); LYMPHOCYTES # (AUTO) 0.3 X10'3 (1.1-4.8); LYMPHOCYTES % (AUTO) 2.4 % (21-51); MEAN CORPUSCULAR HEMOGLOBIN 23.3 PG (27.0-31.0); MEAN CORPUSCULAR VOLUME 75.3 FL (78-98); MEAN PLATELET VOLUME 9.4 FL (7.4-10.4); MONOCYTES # (AUTO) 0.1 X10'3 (0-0.9); MONOCYTES % (AUTO) 0.6 % (2-12); NEUTROPHILS # (AUTO) 12.5 X10'3 (1.8-7.7); NEUTROPHILS % (AUTO) 95.1 % (42-75); PLATELET COUNT 183 X10'3 (140-440); RED BLOOD COUNT 3.58 X10'6 (4.20-5.60); RED CELL DISTRIBUTION WIDTH 19.8 % (11.5-14.5); WHITE BLOOD COUNT 13.1 X10'3 (4.5-11.0)
[2017-10-09 19:00] VITALS: BP 158/57
[2017-10-09] MEDS: furosemide 40mg tablet PO SCH (19:53)
[2017-10-09] MEDS: pantoprazole 40mg Tablet.DR PO SCH (19:53)
[2017-10-09 23:00] VITALS: BP 147/66
[2017-10-10 03:00] VITALS: BP 140/53
[2017-10-10 05:10] LABS: BASOPHILS % (AUTO) 0.1 % (0-1); EOSINOPHILS # (AUTO) 0.1 X10'3 (0-0.9); EOSINOPHILS % (AUTO) 1.4 % (0-6); HEMATOCRIT 25.6 % (35.0-45.0); HEMOGLOBIN 7.8 g/dl (12.0-16.0); LYMPHOCYTES # (AUTO) 0.3 X10'3 (1.1-4.8); LYMPHOCYTES % (AUTO) 2.7 % (21-51); MEAN CORPUSCULAR HEMOGLOBIN 23.2 PG (27.0-31.0); MEAN CORPUSCULAR HGB CONC 30.6 % (33.0-36.5); MEAN CORPUSCULAR VOLUME 75.7 FL (78-98); MEAN PLATELET VOLUME 9.7 FL (7.4-10.4); MONOCYTES % (AUTO) 0.2 % (2-12); NEUTROPHILS # (AUTO) 9.3 X10'3 (1.8-7.7); NEUTROPHILS % (AUTO) 95.6 % (42-75); PLATELET COUNT 149 X10'3 (140-440); RED BLOOD COUNT 3.38 X10'6 (4.20-5.60); RED CELL DISTRIBUTION WIDTH 19.7 % (11.5-14.5); WHITE BLOOD COUNT 9.8 X10'3 (4.5-11.0)
[2017-10-10 07:00] VITALS: BP 171/59
[2017-10-10] MEDS: pantoprazole 40mg Tablet.DR PO SCH ×2 (07:14→19:29)
[2017-10-10] MEDS: levoTHYROXINE 25mcg tablet PO SCH (07:15)
[2017-10-10] MEDS: furosemide 40mg tablet PO SCH ×2 (07:15→19:29)
[2017-10-10] MEDS: amiodarone 200mg tablet PO SCH ×2 (07:15→19:28)
[2017-10-10] MEDS: methylPREDNISolone sod succ/PF 40mg inj. IV SCH ×2 (07:15→19:29)
[2017-10-10] MEDS: duloxetine 30mg CAPSULE.DR PO SCH (07:15)
[2017-10-10] MEDS: diltiazem CD 120mg capsule (once-daily) PO SCH (07:15)
[2017-10-10] MEDS: cefepime 2g/NS 100ml ADVANTAGE 100 ML IV SCH ×3 (07:16→23:19)
[2017-10-10] MEDS: nystatin 15 GM powder TP SCH ×3 (07:28→19:29)
[2017-10-10 07:50] LABS: ANISOCYTOSIS 2+; HYPOCHROMASIA 1+; MICROCYTOSIS 1+; PLATELET ESTIMATE NORMAL; POLYCHROMASIA 1+
[2017-10-10 07:51] LABS: STOMATOCYTES 1+
[2017-10-10] MEDS: K and/or MAG REPLACEMENT MC SCH (08:00)
[2017-10-10] MEDS: insulin Lispro (HumaLOG) vial - multi-dose SQ SCH ×3 (08:39→19:31)
[2017-10-10] MEDS ORDERED: furosemide 20 MG/2 ML vial IV ONE (10:10)
[2017-10-10] MEDS ORDERED: diltiazem 5mg/ml 5ml inj. IV ONE (10:10)
[2017-10-10 10:53] LABS: BASOPHILS % (AUTO) 0 % (0-1); EOSINOPHILS % (AUTO) 0 % (0-6); HEMATOCRIT 25.8 % (35.0-45.0); HEMOGLOBIN 8.1 g/dl (12.0-16.0); LYMPHOCYTES # (AUTO) 0.2 X10'3 (1.1-4.8); LYMPHOCYTES % (AUTO) 1.4 % (21-51); MEAN CORPUSCULAR HEMOGLOBIN 23.3 PG (27.0-31.0); MEAN CORPUSCULAR HGB CONC 31.3 % (33.0-36.5); MEAN CORPUSCULAR VOLUME 74.5 FL (78-98); MONOCYTES % (AUTO) 0.4 % (2-12); NEUTROPHILS # (AUTO) 10.5 X10'3 (1.8-7.7); NEUTROPHILS % (AUTO) 98.2 % (42-75); PLATELET COUNT 147 X10'3 (140-440); RED BLOOD COUNT 3.46 X10'6 (4.20-5.60); RED CELL DISTRIBUTION WIDTH 20.2 % (11.5-14.5); WHITE BLOOD COUNT 10.7 X10'3 (4.5-11.0)
[2017-10-10 10:55] LABS: ABG HCO3 27.4 mmol/L (22.0-26.0); ABG OXYGEN SATURATION 94.5 % (95-98); ABG PCO2 (T) 46.2 mmHg (32.0-45.0); ABG PH (T) 7.389 (7.350-7.450); ABG PO2 (T) 74.8 mmHg (83-108); ALLEN'S TEST Positive; FCOHb 0.9 % (0.5-1.5); FLOW 4 L/min; FMetHb 0.2 % (0.3-1.12); FO2Hb 93.5 % (94-100); PATIENT TEMPERATURE 36.7; TOTAL HEMOGLOBIN 8.8 G/dl (12.0-16.0)
[2017-10-10 11:00] VITALS: BP 121/57
[2017-10-10 11:21] LABS: ALBUMIN 2.6 G/DL (3.4-5.0); ANION GAP 5 (8-16); BLOOD UREA NITROGEN 42 MG/DL (7-18); BUN/CREATININE RATIO 22.2 (6.6-38.0); CALCIUM 8.5 MG/DL (8.5-10.1); CHLORIDE 94 MMOL/L (99-107); CREATININE 1.89 MG/DL (0.40-0.90); POTASSIUM 4.1 MMOL/L (3.5-5.1); SODIUM 131 MMOL/L (135-145); TOTAL CARBON DIOXIDE 32.3 MMOL/L (24-32); eGFR 26 ML/MIN
[2017-10-10 11:24] LABS: GLUCOSE 524 MG/DL (70-104)
[2017-10-10] MEDS: insulin glargine (Lantus) pen - multi-dose SQ SCH ×2 (13:45→20:55)
[2017-10-10] MEDS: vancomycin/NS 1 GM ADD-VANTAGE 250 ML IV SCH (13:51)
[2017-10-10 15:00] VITALS: BP 134/49
[2017-10-10 19:00] VITALS: BP 148/50
[2017-10-10] MEDS: lactobacillus rhamnosus 10,000 MMU CELLS/CAPSULE PO SCH (19:28)
[2017-10-10 19:45] LABS: BASOPHILS % (AUTO) 0.2 % (0-1); EOSINOPHILS % (AUTO) 0 % (0-6); HEMATOCRIT 25.6 % (35.0-45.0); HEMOGLOBIN 8.1 g/dl (12.0-16.0); LYMPHOCYTES # (AUTO) 0.4 X10'3 (1.1-4.8); LYMPHOCYTES % (AUTO) 1.9 % (21-51); MEAN CORPUSCULAR HEMOGLOBIN 23.4 PG (27.0-31.0); MEAN CORPUSCULAR HGB CONC 31.6 % (33.0-36.5); MEAN CORPUSCULAR VOLUME 74.2 FL (78-98); MEAN PLATELET VOLUME 9.2 FL (7.4-10.4); MONOCYTES # (AUTO) 0.4 X10'3 (0-0.9); MONOCYTES % (AUTO) 2.1 % (2-12); NEUTROPHILS # (AUTO) 17.8 X10'3 (1.8-7.7); NEUTROPHILS % (AUTO) 95.8 % (42-75); PLATELET COUNT 195 X10'3 (140-440); RED BLOOD COUNT 3.46 X10'6 (4.20-5.60); RED CELL DISTRIBUTION WIDTH 19.8 % (11.5-14.5); WHITE BLOOD COUNT 18.5 X10'3 (4.5-11.0)
[2017-10-10 23:02] VITALS: BP 145/51
[2017-10-11] VITALS (10 sets, daily range): BP systolic 143–160; BP diastolic 50–86
[2017-10-11] MEDS: temazepam 15mg capsule PO PRN ×2 (01:36→21:06)
[2017-10-11 06:34] LABS: BASOPHILS % (AUTO) 0 % (0-1); EOSINOPHILS % (AUTO) 0 % (0-6); HEMOGLOBIN 7.9 g/dl (12.0-16.0); LYMPHOCYTES # (AUTO) 0.4 X10'3 (1.1-4.8); LYMPHOCYTES % (AUTO) 1.9 % (21-51); MEAN CORPUSCULAR HEMOGLOBIN 23.5 PG (27.0-31.0); MEAN CORPUSCULAR HGB CONC 31.7 % (33.0-36.5); MEAN PLATELET VOLUME 9.7 FL (7.4-10.4); MONOCYTES # (AUTO) 0.2 X10'3 (0-0.9); MONOCYTES % (AUTO) 1.1 % (2-12); NEUTROPHILS # (AUTO) 19.5 X10'3 (1.8-7.7); PLATELET COUNT 194 X10'3 (140-440); RED BLOOD COUNT 3.38 X10'6 (4.20-5.60); RED CELL DISTRIBUTION WIDTH 20.6 % (11.5-14.5); WHITE BLOOD COUNT 20.1 X10'3 (4.5-11.0)
[2017-10-11 06:58] LABS: ANISOCYTOSIS 3+; HYPOCHROMASIA 2+; LARGE PLATELETS MODERATE; MICROCYTOSIS 1+; PLATELET ESTIMATE NORMAL
[2017-10-11] MEDS: furosemide 40mg tablet PO SCH ×2 (07:29→21:05)
[2017-10-11] MEDS: levoTHYROXINE 25mcg tablet PO SCH (07:29)
[2017-10-11] MEDS: nystatin 15 GM powder TP SCH ×3 (07:30→21:00)
[2017-10-11] MEDS: duloxetine 30mg CAPSULE.DR PO SCH (07:30)
[2017-10-11] MEDS: amiodarone 200mg tablet PO SCH ×2 (07:31→21:05)
[2017-10-11] MEDS: methylPREDNISolone sod succ/PF 40mg inj. IV SCH ×2 (07:33→21:06)
[2017-10-11] MEDS: cefepime 2g/NS 100ml ADVANTAGE 100 ML IV SCH ×3 (07:33→23:08)
[2017-10-11] MEDS: diltiazem CD 120mg capsule (once-daily) PO SCH (07:41)
[2017-10-11] MEDS: lactobacillus rhamnosus 10,000 MMU CELLS/CAPSULE PO SCH ×2 (07:41→21:05)
[2017-10-11] MEDS: pantoprazole 40mg Tablet.DR PO SCH ×2 (07:41→21:05)
[2017-10-11] MEDS: K and/or MAG REPLACEMENT MC SCH (08:00)
[2017-10-11] MEDS: insulin glargine (Lantus) pen - multi-dose SQ SCH ×2 (08:00→21:08)
[2017-10-11] MEDS: insulin Lispro (HumaLOG) vial - multi-dose SQ SCH ×3 (08:50→18:01)
[2017-10-11 11:05] LABS: BASOPHILS % (AUTO) 0 % (0-1); EOSINOPHILS # (AUTO) 0.2 X10'3 (0-0.9); EOSINOPHILS % (AUTO) 1.3 % (0-6); HEMATOCRIT 24.8 % (35.0-45.0); HEMOGLOBIN 7.9 g/dl (12.0-16.0); LYMPHOCYTES # (AUTO) 0.3 X10'3 (1.1-4.8); LYMPHOCYTES % (AUTO) 1.7 % (21-51); MEAN CORPUSCULAR HEMOGLOBIN 23.3 PG (27.0-31.0); MEAN CORPUSCULAR HGB CONC 31.6 % (33.0-36.5); MEAN CORPUSCULAR VOLUME 73.8 FL (78-98); MEAN PLATELET VOLUME 9.3 FL (7.4-10.4); MONOCYTES % (AUTO) 0.2 % (2-12); NEUTROPHILS # (AUTO) 17.6 X10'3 (1.8-7.7); NEUTROPHILS % (AUTO) 96.8 % (42-75); PLATELET COUNT 186 X10'3 (140-440); RED BLOOD COUNT 3.36 X10'6 (4.20-5.60); RED CELL DISTRIBUTION WIDTH 20.4 % (11.5-14.5); WHITE BLOOD COUNT 18.1 X10'3 (4.5-11.0)
[2017-10-11 11:22] LABS: ANISOCYTOSIS 2+; HYPOCHROMASIA 2+; PLATELET ESTIMATE NORMAL; POLYCHROMASIA 1+
[2017-10-11 11:23] LABS: MICROCYTOSIS 1+
[2017-10-11] MEDS: vancomycin/NS 1 GM ADD-VANTAGE 250 ML IV SCH (14:17)
[2017-10-11] MEDS ORDERED: furosemide 20 MG/2 ML vial IV ONE (15:10)
[2017-10-11] MEDS: HYDROcodone/acetaminophen 10/325mg tab PO PRN (21:45)
[2017-10-12] VITALS (7 sets, daily range): BP systolic 116–144; BP diastolic 53–83
[2017-10-12 07:22] LABS: BASOPHILS % (AUTO) 0 % (0-1); EOSINOPHILS # (AUTO) 0.3 X10'3 (0-0.9); HEMATOCRIT 27.7 % (35.0-45.0); HEMOGLOBIN 8.9 g/dl (12.0-16.0); LYMPHOCYTES # (AUTO) 0.2 X10'3 (1.1-4.8); LYMPHOCYTES % (AUTO) 1.7 % (21-51); MEAN CORPUSCULAR HEMOGLOBIN 24.4 PG (27.0-31.0); MEAN CORPUSCULAR HGB CONC 32.2 % (33.0-36.5); MEAN CORPUSCULAR VOLUME 75.6 FL (78-98); MEAN PLATELET VOLUME 9.7 FL (7.4-10.4); MONOCYTES # (AUTO) 0.1 X10'3 (0-0.9); MONOCYTES % (AUTO) 0.8 % (2-12); NEUTROPHILS # (AUTO) 12.9 X10'3 (1.8-7.7); NEUTROPHILS % (AUTO) 95.5 % (42-75); PLATELET COUNT 160 X10'3 (140-440); RED BLOOD COUNT 3.66 X10'6 (4.20-5.60); RED CELL DISTRIBUTION WIDTH 20.3 % (11.5-14.5); WHITE BLOOD COUNT 13.5 X10'3 (4.5-11.0)
[2017-10-12] MEDS: methylPREDNISolone sod succ/PF 40mg inj. IV SCH (07:28)
[2017-10-12] MEDS: amiodarone 200mg tablet PO SCH (07:29)
[2017-10-12] MEDS: diltiazem CD 120mg capsule (once-daily) PO SCH (07:29)
[2017-10-12] MEDS: furosemide 40mg tablet PO SCH (07:29)
[2017-10-12] MEDS: levoTHYROXINE 25mcg tablet PO SCH (07:29)
[2017-10-12] MEDS: lactobacillus rhamnosus 10,000 MMU CELLS/CAPSULE PO SCH (07:29)
[2017-10-12] MEDS: duloxetine 30mg CAPSULE.DR PO SCH (07:29)
[2017-10-12] MEDS: pantoprazole 40mg Tablet.DR PO SCH (07:29)
[2017-10-12] MEDS: cefepime 2g/NS 100ml ADVANTAGE 100 ML IV SCH (07:40)
[2017-10-12] MEDS: insulin glargine (Lantus) pen - multi-dose SQ SCH (07:43)
[2017-10-12 07:55] LABS: ANISOCYTOSIS 2+; PLATELET ESTIMATE NORMAL
[2017-10-12 07:58] LABS: HYPOCHROMASIA 1+; MICROCYTOSIS 1+
[2017-10-12] MEDS: nystatin 15 GM powder TP SCH ×2 (08:00→13:06)
[2017-10-12] MEDS: K and/or MAG REPLACEMENT MC SCH (08:00)
[2017-10-12] MEDS: insulin Lispro (HumaLOG) vial - multi-dose SQ SCH (13:02)
[2017-10-12] MEDS: vancomycin/NS 1 GM ADD-VANTAGE 250 ML IV SCH (13:26)
[2017-10-12] MEDS ORDERED: VANCOMYCIN LEVEL IV ONE (13:30)
[2017-10-13] MEDS ORDERED: cefepime 2g/NS 100ml ADVANTAGE 100 ML IV SCH (08:00)
== END 2017-10-12 16:25 | DRG 377 ==
LOC: ER 19:27 → ED HOLD 21:53 → SUR 3N 23:24 → PCU 3S 10-09 06:00
PROVIDERS: ADMIT Hospitalist; ATTEND Internal Medicine
PROC: CB121ZZ Planar Nuclear Medicine Imaging of Lungs and Bronchi using Technetium 99m (Tc-99m) (ICD-10-PCS; 2017-10-05)
PROC: 4B02XSZ Measurement of Cardiac Pacemaker, External Approach (ICD-10-PCS; 2017-10-06)
PROC: 0DB98ZX Excision of Duodenum, Via Natural or Artificial Opening Endoscopic, Diagnostic (ICD-10-PCS; principal; 2017-10-07)
PROC: 0DB68ZX Excision of Stomach, Via Natural or Artificial Opening Endoscopic, Diagnostic (ICD-10-PCS; 2017-10-07)
PROC: 0DBH8ZX Excision of Cecum, Via Natural or Artificial Opening Endoscopic, Diagnostic (ICD-10-PCS; 2017-10-07)
PROC: 0DBN8ZZ Excision of Sigmoid Colon, Via Natural or Artificial Opening Endoscopic (ICD-10-PCS; 2017-10-07)
PROC: 5A09357 Assistance with Respiratory Ventilation, Less than 24 Consecutive Hours, Continuous Positive Airway Pressure (ICD-10-PCS; 2017-10-09)
PROC: 30233N1 Transfusion of Nonautologous Red Blood Cells into Peripheral Vein, Percutaneous Approach (ICD-10-PCS; 2017-10-11)
DX: K31.811 Angiodysplasia of stomach and duodenum with bleeding (principal); I50.33 Acute on chronic diastolic (congestive) heart failure; D62 Acute posthemorrhagic anemia; E87.2 Acidosis; J96.11 Chronic respiratory failure with hypoxia; E03.9 Hypothyroidism, unspecified; E11.22 Type 2 diabetes mellitus with diabetic chronic kidney disease; E78.5 Hyperlipidemia, unspecified; I25.10 Atherosclerotic heart disease of native coronary artery without angina pectoris; F32.9 Major depressive disorder, single episode, unspecified; I27.81 Cor pulmonale (chronic); R00.0 Tachycardia, unspecified; I48.0 Paroxysmal atrial fibrillation; K22.2 Esophageal obstruction; K25.3 Acute gastric ulcer without hemorrhage or perforation; K26.9 Duodenal ulcer, unspecified as acute or chronic, without hemorrhage or perforation; D12.5 Benign neoplasm of sigmoid colon; D12.0 Benign neoplasm of cecum; K57.30 Diverticulosis of large intestine without perforation or abscess without bleeding; I65.29 Occlusion and stenosis of unspecified carotid artery; I08.1 Rheumatic disorders of both mitral and tricuspid valves; N18.3 Chronic kidney disease, stage 3 (moderate); Z90.49 Acquired absence of other specified parts of digestive tract; Z90.710 Acquired absence of both cervix and uterus; Z99.81 Dependence on supplemental oxygen; Z95.0 Presence of cardiac pacemaker; Z88.6 Allergy status to analgesic agent; Z79.899 Other long term (current) drug therapy; Z79.4 Long term (current) use of insulin; Z85.42 Personal history of malignant neoplasm of other parts of uterus; Z86.73 Personal history of transient ischemic attack (TIA), and cerebral infarction without residual deficits; Z87.891 Personal history of nicotine dependence; Z82.49 Family history of ischemic heart disease and other diseases of the circulatory system; Z83.3 Family history of diabetes mellitus
CPT/HCPCS: 36415; 36600; 43239; 45385; 71045; 78582; 80048; 80053; 80202; 82272; 82607; 82746; 82803; 82948; 83036; 83540; 83550; 83880; 84439; 84443; 84484; 85018; 85025; 85610; 85730; 86644; 86885; 86900; 86901; 86902; 86922; 86945; 87070; 88305; 88342; 93005; 94640; 94660; 94760; 96374; 97161; 97530; 99285; A4353; A4620; A6258; A9539; A9540; C9113; G0500; J0692; J1815; J1940; J2250; J2405; J2920; J3010; J3370; J3490; J7030; P9016